=== PATIENT | male | born 1995 | race American Indian/Alaskan Native ===

== ENCOUNTER 2017-06-29 10:28 | Emergency (ER) | payer MEDICAID ==
[2017-06-29] MEDS ORDERED: NACL 0.9% 500 ML 500 ML IV ONE ×2 (11:07→11:41)
--- NOTE | 2017-06-29 11:09 | Emergency Department Report ---
ED CPR HPI - General Chief Complaint: Cardiac Arrest/CPR Stated Complaint: CARDIAC ARREST Time Seen by Provider: 06/29/17 10:59 Source: EMS, old records reviewed Mode of arrival: Ambulatory Limitations: Physical Limitation - History of Present Illness Initial Comments: 22-year-old male with a past medical history muscular dystrophy presents to the hospital via EMS status post respiratory arrest. At the scene was receiving [id number] and chest compressions from his mother. EMS reports the patient does lose his pulse but regained pulse with bag valve mask ventilation and supplemental oxygenation. At his baseline patient uses CPAP at night and during the day as needed. Last week patient was here on the and diagnosed with influenza A. Currently taking Tamiflu. Since diagnosis patient has required more CPAP support during the day and seems to have more phlegm with coughing. No recent fever reported. Mild decrease in appetite causing mother and to increase peg feedings. EMS reports that patient had very poor air movement and received albuterol in route to the hospital. Pt's orthodontic technician is [facility] - Related Data Allergies Allergy/AdvReac Type Severity Reaction Status Date / Time No Known Allergies Allergy Unverified 06/29/17 11:20 ED Review of Systems ROS: Stated complaint: CARDIAC ARREST Other details as noted in HPI Comment: Unobtainable due to pts medical conditions ED Past Medical Hx - Past Medical History Previous Medical History?: Yes Hx Hypertension: Yes Additional medical history: MS - Surgical History Past Surgical History?: Yes Additional Surgical History: PEG - Social History Smoking Status: Never Smoker ED Physical Exam - General Limitations: Physical Limitation - Other Other exam information: General: Limited, cachectic Head exam: Atraumatic Eyes exam: Normal appearance, pupils equal reactive to light ENT: Moist mucous membrane, presents with oral airway and bagging Neck exam: Normal inspection, limited motion Respiratory exam: Bilateral rhonchi, some spontaneous breaths Cardiovascular: Tachycardic regular rhythm Abdomen: Soft, nondistended, positive headache Extremity: Generalized atrophy to all muscle Back: Normal Inspection Neurologic: Lethargic, eyes open spontaneously, does not currently speak or follow command Skin: Warm, dry, intact ED Course Vital Signs 06/29/17 06/29/17 06/29/17 10:30 10:40 10:45 Temperature 98.6 F Pulse Rate 174 H 167 H 177 H Pulse Rate [ Bilateral Upper Lobe] Respiratory 33 H 16 20 Rate Respiratory Rate [Bilateral Upper Lobe] Blood Pressure 127/99 131/100 Blood Pressure 131/100 [Right] O2 Sat by Pulse 96 Oximetry 06/29/17 06/29/17 06/29/17 11:00 11:01 11:16 Temperature Pulse Rate 149 H 142 H 145 H Pulse Rate [ Bilateral Upper Lobe] Respiratory 20 20 20 Rate Respiratory Rate [Bilateral Upper Lobe] Blood Pressure 98/71 98/71 Blood Pressure 98/71 [Right] O2 Sat by Pulse 97 Oximetry 06/29/17 06/29/17 06/29/17 11:30 11:45 12:00 Temperature 96.1 F L Pulse Rate 114 H 119 H 148 H Pulse Rate [ Bilateral Upper Lobe] Respiratory 20 18 10 L Rate Respiratory Rate [Bilateral Upper Lobe] Blood Pressure 81/59 79/46 112/95 Blood Pressure 81/59 [Right] O2 Sat by Pulse Oximetry 06/29/17 06/29/17 06/29/17 12:15 12:17 12:23 Temperature Pulse Rate 121 H 93 H Pulse Rate [ 125 H Bilateral Upper Lobe] Respiratory 9 L Rate Respiratory 20 Rate [Bilateral Upper Lobe] Blood Pressure 74/51 75/51 Blood Pressure [Right] O2 Sat by Pulse Oximetry 06/29/17 06/29/17 06/29/17 12:24 12:30 12:46 Temperature Pulse Rate 41 L Pulse Rate [ 130 H Bilateral Upper Lobe] Respiratory 11 L Rate Respiratory 20 Rate [Bilateral Upper Lobe] Blood Pressure 69/41 102/79 Blood Pressure [Right] O2 Sat by Pulse 71 L Oximetry - Reevaluation(s) Reevaluation #1: 06/29/17 Upon arrival patient was placed on BiPAP with oxygenation of 98%. Respiratory therapist was unable to obtain ABG. IV fluids initiated for hypotension after BiPAP initiation. After 1500 mL of normal saline patient remained hypotensive. Additional 1 L ordered. Central venous line set up ordered. Cardiology came to bedside to evaluate patient. Agree that underlying rhythm is A. fib RVR. Recommended digoxin 0.25 mg IV secondary to A. fib with hypotension. Cardiology considers to start amiodarone pending repeat EKG. EKG was being performed patient's heart rate began to bradycardia down to the 40s. After atropine 0.5 mg they're was very little improvement. Therefore additional atropine 0.5 mg given, epinephrine initiated, and chest compressions initiated. Despite multiple rounds of epinephrine, sodium bicarbonate, and chest compressions patient's rhythm deteriorated from PEA asystole. Mother at the bedside time of 12:53 - Consultations Consultation #1: 06/29/[address] Arciniega/Kaylyn Clayton consulted and came to bedside to eval pt - EJ/Peripheral Line Neck L Time Out Performed: Yes Indications: nurses unable to establis Skin Cleansed in Sterile Fashion: Yes Size: 20 Dressing Placed: Tegaderm Patient Tolerated Procedure: well ED Medical Decision Making - Lab Data Result diagrams: 06/29/17 11:25 06/29/17 11:25 Lab Results 06/29/17 06/29/17 06/29/17 Range/Units 11:25 11:25 11:25 WBC 12.9 H (4.5-11.0) K/mm3 RBC 4.39 (3.65-5.03) M/mm3 Hgb 11.7 L (11.8-15.2) gm/dl Hct 38.3 (35.5-45.6) % MCV 87 (84-94) fl MCH 27 L (28-32) pg MCHC 31 L (32-34) % RDW 13.8 (13.2-15.2) % Plt Count 252 (140-440) K/mm3 Add Manual Diff Complete Total Counted 100 Seg Neuts % (Manual) 59.0 (40.0-70.0) % Band Neutrophils % 2.0 % Lymphocytes % (Manual) 35.0 (13.4-35.0) % Reactive Lymphs % (Man) 0 % Monocytes % (Manual) 4.0 (0.0-7.3) % Eosinophils % (Manual) 0 (0.0-4.3) % Basophils % (Manual) 0 (0.0-1.8) % Metamyelocytes % 0 % Myelocytes % 0 % Promyelocytes % 0 % Blast Cells % 0 % Nucleated RBC % 1.0 H (0.0-0.9) % Seg Neutrophils # Man 7.6 (1.8-7.7) K/mm3 Band Neutrophils # 0.3 K/mm3 Lymphocytes # (Manual) 4.5 (1.2-5.4) K/mm3 Abs React Lymphs (Man) 0.0 K/mm3 Monocytes # (Manual) 0.5 (0.0-0.8) K/mm3 Eosinophils # (Manual) 0.0 (0.0-0.4) K/mm3 Basophils # (Manual) 0.0 (0.0-0.1) K/mm3 Metamyelocytes # 0.0 K/mm3 Myelocytes # 0.0 K/mm3 Promyelocytes # 0.0 K/mm3 Blast Cells # 0.0 K/mm3 WBC Morphology Not Reportable Hypersegmented Neuts Not Reportable Hyposegmented Neuts Not Reportable Hypogranular Neuts Not Reportable Smudge Cells Not Reportable Toxic Granulation Not Reportable Toxic Vacuolation Not Reportable Dohle Bodies Not Reportable Pelger-Huet Anomaly Not Reportable Gabrielle Rods Not Reportable Platelet Estimate Appears normal Clumped Platelets Not Reportable Plt Clumps, EDTA Not Reportable Large Platelets Not Reportable Giant Platelets Not Reportable Platelet Satelliting Not Reportable Plt Morphology Comment Not Reportable RBC Morphology Normal Dimorphic RBCs Not Reportable Polychromasia Not Reportable Hypochromasia Not Reportable Poikilocytosis Not Reportable Anisocytosis Not Reportable Microcytosis Not Reportable Macrocytosis Not Reportable Spherocytes Not Reportable Pappenheimer Bodies Not Reportable Sickle Cells Not Reportable Target Cells Not Reportable Tear Drop Cells Not Reportable Ovalocytes Not Reportable Helmet Cells Not Reportable Denson-[place] Bodies Not Reportable [place] Rings Not Reportable [place] Cells Not Reportable Bite Cells Not Reportable Crenated Cell Not Reportable Elliptocytes Not Reportable Acanthocytes (Spur) Not Reportable Rouleaux Not Reportable Hemoglobin C Crystals Not Reportable Schistocytes Not Reportable Malaria parasites Not Reportable Samuel Bodies Not Reportable Hem Pathologist Commnt No PT (12.2-14.9) Sec. INR (0.87-1.13) APTT (24.2-36.6) Sec. Sodium 147 H (137-145) mmol/L Potassium 3.9 (3.6-5.0) mmol/L Chloride 99.4 (98-107) mmol/L Carbon Dioxide 29 (22-30) mmol/L Anion Gap 23 mmol/L BUN 7 L (9-20) mg/dL Creatinine < 0.2 L (0.8-1.5) mg/dL Estimated GFR > 60 ml/min BUN/Creatinine Ratio 35 % Glucose 127 H (75-100) mg/dL Lactic Acid 6.90 H* (0.7-2.0) mmol/L Calcium 7.5 L (8.4-10.2) mg/dL Magnesium (1.7-2.3) mg/dL Total Creatine Kinase (55-170) units/L CK-MB (CK-2) (0.0-4.0) ng/mL CK-MB (CK-2) Rel Index (0-4) Troponin T (0.00-0.029) ng/mL Triglycerides (2-149) mg/dL Cholesterol (50-199) mg/dL LDL Cholesterol Direct (50-130) mg/dL HDL Cholesterol (40-59) mg/dL Cholesterol/HDL Ratio % 06/29/17 06/29/17 Range/Units 11:25 11:25 WBC (4.5-11.0) K/mm3 RBC (3.65-5.03) M/mm3 Hgb (11.8-15.2) gm/dl Hct (35.5-45.6) % MCV (84-94) fl MCH (28-32) pg MCHC (32-34) % RDW (13.2-15.2) % Plt Count (140-440) K/mm3 Add Manual Diff Total Counted Seg Neuts % (Manual) (40.0-70.0) % Band Neutrophils % % Lymphocytes % (Manual) (13.4-35.0) % Reactive Lymphs % (Man) % Monocytes % (Manual) (0.0-7.3) % Eosinophils % (Manual) (0.0-4.3) % Basophils % (Manual) (0.0-1.8) % Metamyelocytes % % Myelocytes % % Promyelocytes % % Blast Cells % % Nucleated RBC % (0.0-0.9) % Seg Neutrophils # Man (1.8-7.7) K/mm3 Band Neutrophils # K/mm3 Lymphocytes # (Manual) (1.2-5.4) K/mm3 Abs React Lymphs (Man) K/mm3 Monocytes # (Manual) (0.0-0.8) K/mm3 Eosinophils # (Manual) (0.0-0.4) K/mm3 Basophils # (Manual) (0.0-0.1) K/mm3 Metamyelocytes # K/mm3 Myelocytes # K/mm3 Promyelocytes # K/mm3 Blast Cells # K/mm3 WBC Morphology Hypersegmented Neuts Hyposegmented Neuts Hypogranular Neuts Smudge Cells Toxic Granulation Toxic Vacuolation Dohle Bodies Pelger-Huet Anomaly Gabrielle Rods Platelet Estimate Clumped Platelets Plt Clumps, EDTA Large Platelets Giant Platelets Platelet Satelliting Plt Morphology Comment RBC Morphology Dimorphic RBCs Polychromasia Hypochromasia Poikilocytosis Anisocytosis Microcytosis Macrocytosis Spherocytes Pappenheimer Bodies Sickle Cells Target Cells Tear Drop Cells Ovalocytes Helmet Cells Denson-[place] Bodies Yantis Rings [place] Cells Bite Cells Crenated Cell Elliptocytes Acanthocytes (Spur) Rouleaux Hemoglobin C Crystals Schistocytes Malaria parasites Samuel Bodies Hem Pathologist Commnt PT 17.2 H (12.2-14.9) Sec. INR 1.33 H (0.87-1.13) APTT 37.1 H (24.2-36.6) Sec. Sodium (137-145) mmol/L Potassium (3.6-5.0) mmol/L Chloride (98-107) mmol/L Carbon Dioxide (22-30) mmol/L Anion Gap mmol/L BUN (9-20) mg/dL Creatinine (0.8-1.5) mg/dL Estimated GFR ml/min BUN/Creatinine Ratio % Glucose (75-100) mg/dL Lactic Acid (0.7-2.0) mmol/L Calcium (8.4-10.2) mg/dL Magnesium 2.20 (1.7-2.3) mg/dL Total Creatine Kinase 510 H (55-170) units/L CK-MB (CK-2) 15.9 H (0.0-4.0) ng/mL CK-MB (CK-2) Rel Index 3.1 (0-4) Troponin T 0.050 H (0.00-0.029) ng/mL Triglycerides 56 (2-149) mg/dL Cholesterol 62 (50-199) mg/dL LDL Cholesterol Direct 26 L (50-130) mg/dL HDL Cholesterol 25 L (40-59) mg/dL Cholesterol/HDL Ratio 2.48 % - EKG Data -: EKG Interpreted by Me (afib) EKG shows normal: axis (92), QRS complexes (95), ST-T waves (no stemi/t inv, minimal st depression) Rate: tachycardia (124) - EKG Data When compared to previous EKG there are: previous EKG unavailable - Radiology Data Radiology results: report reviewed (chest x-ray: No acute findings read by radiologist) - Medical Decision Making Respiratory Patient was tolerating BiPAP support with saturation of 98% Chest x-ray unremarkable Respiratory unable to obtain abg Tachycardia Initial rhythm appeared to be atrial fibrillation Possible sepsis considered Cardiology consulted and at bedside rec: digoxin 0.25mg IVF intitated with HR improved from 150's-120's Hypotension Sepsis suspected versus A. fib with RVR IV fluids initiated central line set up pending prior to decompensation blood cultures ordered Unfortunately despite ED treatment and resuscitation of this patient's rhythm deteriorated to asystole. Time of 12:53 - Differential Diagnosis pneumonia, bronchitis, sepsis, influenza, respiratory failure Critical Care Time: Yes Critical care time in (mins) excluding proc time.: 65 Critical care attestation.: If time is entered above; I have spent that time in minutes in the direct care of this critically ill patient, excluding procedure time. ED Disposition Clinical Impression: Cardiopulmonary arrest, Influenza A, Muscular dystrophy, Elevated lactic acid level Disposition: DC-20 Is pt being admited?: No Condition: Serious Time of Disposition: 13:30
[2017-06-29] MEDS ORDERED: ATROVENT IH ONE (11:21)
[2017-06-29] MEDS ORDERED: XOPENEX IH ONE (11:21)
--- NOTE | 2017-06-29 11:43 | XRay Report ---
PORTABLE CHEST INDICATION: Shortness of breath. COMPARISON: 08/03/2011 FINDINGS: Portable, frontal chest radiograph limited due to patient rotation to the right with grossly stable cardiomediastinal silhouette, clear lungs and extensive thoracolumbar Lipscomb rods partially imaged. EKG leads. CONCLUSION: Limited, though grossly unremarkable exam with spinal rods again noted, as described. Please correlate. Thank you for the opportunity to participate in this patient's care.
[2017-06-29] MEDS ORDERED: NACL 0.9% 1000 ML 1,000 ML IV ONE (11:51)
[2017-06-29] MEDS ORDERED: ZITHROMAX 500 MG in NACL 0.9% 250ML 250 ML IV ONE (12:00)
[2017-06-29 12:09] LABS: Hematocrit 38.3 % (35.5-45.6); Hemoglobin 11.7 gm/dl (11.8-15.2); Mean Corpuscular HGB Conc 31 % (32-34); Mean Corpuscular Hemoglobin 27 pg (28-32); Mean Corpuscular Volume 87 fl (84-94); Platelet Count 252 K/mm3 (140-440); Red Blood Count 4.39 M/mm3 (3.65-5.03); Red Cell Distribution Width 13.8 % (13.2-15.2)
[2017-06-29] MEDS ORDERED: LANOXIN IV ONE (12:15)
[2017-06-29 12:19] LABS: INR 1.33 (0.87-1.13); Partial Thromboplastin Time 37.1 Sec. (24.2-36.6)
[2017-06-29] MEDS ORDERED: CORDARONE 150 MG in D5W 100 ML IV ONE (12:21)
[2017-06-29 12:24] LABS: BUN/Creatinine Ratio 35; Blood Urea Nitrogen 7 mg/dL (9-20); Calcium 7.5 mg/dL (8.4-10.2); Hemolysis Index 5
[2017-06-29 12:25] LABS: Creatine Kinase MB 15.9 ng/mL (0.0-4.0)
[2017-06-29] MEDS ORDERED: ROCEPHIN/NS 1 GM/50 ML 1 GM/50 ML BAG IV ONE (12:30)
[2017-06-29 12:38] LABS: Chol/HDL Ratio 2.48 %
[2017-06-29] MEDS ORDERED: CORDARONE 900 MG in D5W 482 ML IV SCH (13:00)
[2017-06-29] MEDS ORDERED: ADRENALIN ONE (13:00)
[2017-06-29] MEDS ORDERED: ATROPINE 0.1% (CARDIAC) ONE (13:00)
[2017-06-29] MEDS ORDERED: SODIUM BICARBONATE IV ONE (13:00)
[2017-06-29 13:13] LABS: Band Neutrophils # (Manual) 0.3 K/mm3; Eosinophils % (Manual) 0 % (0.0-4.3); Total Cells Counted 100
[2017-06-29 13:14] LABS: Basophils % (Manual) 0 % (0.0-1.8); RBC Morphology Normal
--- NOTE | 2017-06-29 14:00 | Consultation ---
History of Present Illness Consult date: 06/29/17 Requesting physician: ONOFRE VELAZQUEZ Consult reason: atrial fibrillation, tachycardia History of present illness: 22-year-old male with a past medical history of muscular dystrophy and recent diagnosis of influenza A on 06/21/2017. The patient was reportedly followed by a clean rice grader and reel tender at [facility]. The pt was lethargic and on BiPAP on initial evaluation and thus HPI was obtained per pt's mother at bedside and per ED MD. Pt presented to the ED via EMS status post respiratory arrest at home. Per pt's mother, pt woke up this AM with complaints of shortness of breath. Pt was sitting upright at home and was talking to his mother when he became unresponsive and "stopped breathing" per pt's mother. Pt's mother reportedly initiated CPR and continued CPR for approximately 5 minuted prior to EMS arrival. EMS reported the patient did lose his pulse but regained pulse with bag valve mask ventilation and supplemental oxygenation. Following arrival to ED , pt was noted to be in AFib with RVR (peak HR 160-170s) with hypotension and thus cardiology was consulted. On evaluation, pt was noted to be in AFib with HR 120s - 130s with BPs 70s/50s. IV digoxin x1 dose was ordered and administered. Shortly following digoxin administration, pt converted to a regular rhythm which appeared consistent with accelerated junctional rhythm. Pt maintained this rhythm for a brief period of time before developing bradycardia and eventual cardiopulmonary arrest. Resuscitation efforts were initiated and continued per ACLS protocol. However, resuscitation efforts were unsuccessful and the pt ultimately . Past History Past Medical History: other (muscular dystrophy) Medications and Allergies Allergies Allergy/AdvReac Type Severity Reaction Status Date / Time No Known Allergies Allergy Unverified 06/29/17 11:20 Active Meds: Active Medications Amiodarone HCl 900 mg/ (Dextrose) 500 mls @ 33.33 mls/hr IV DIRECT LUIS FERNANDO; 1 MG /MIN PRN Reason: Protocol Review of Systems ROS unobtainable: due to mental status Physical Examination Vital Signs Pulse Resp 174 H 33 H 06/29/17 10:30 06/29/17 10:30 General appearance: cachectic, other (lethargic, on BiPAP) HEENT: Positive: Normocephaly Cardiac: Positive: irregularly irregular, S1/S2, Tachycardia Lungs: Positive: Decreased Breath Sounds Neuro: Positive: Other (KASIA, lethargic ) Abdomen: Positive: Active Bowel Sounds Skin: Positive: Clear. Negative: Rash Musculoskeletal: No Fluid Collection Extremities: Absent: edema Results 06/29/17 11:25 06/29/17 11:25 Cardiac Enzymes 06/29/17 Range/Units 11:25 CK-MB (CK-2) 15.9 H (0.0-4.0) ng/mL Coagulation 06/29/17 Range/Units 11:25 PT 17.2 H (12.2-14.9) Sec. INR 1.33 H (0.87-1.13) APTT 37.1 H (24.2-36.6) Sec. Lipids 06/29/17 Range/Units 11:25 Triglycerides 56 (2-149) mg/dL Cholesterol 62 (50-199) mg/dL HDL Cholesterol 25 L (40-59) mg/dL Cholesterol/HDL Ratio 2.48 % CBC 06/29/17 Range/Units 11:25 WBC 12.9 H (4.5-11.0) K/mm3 RBC 4.39 (3.65-5.03) M/mm3 Hgb 11.7 L (11.8-15.2) gm/dl Hct 38.3 (35.5-45.6) % Plt Count 252 (140-440) K/mm3 Comprehensive Metabolic Panel 06/29/17 Range/Units 11:25 Sodium 147 H (137-145) mmol/L Potassium 3.9 (3.6-5.0) mmol/L Chloride 99.4 (98-107) mmol/L Carbon Dioxide 29 (22-30) mmol/L BUN 7 L (9-20) mg/dL Creatinine < 0.2 L (0.8-1.5) mg/dL Glucose 127 H (75-100) mg/dL Calcium 7.5 L (8.4-10.2) mg/dL - Imaging and Cardiology Echo: pending EKG: report reviewed, image reviewed EKG interpretations - Telemetry EKG Rhythm: Atrial Fibrillation - EKG Supraventricular dysrhythmia: atrial fibrillation Assessment and Plan Pt . The patient has been seen in conjunction with Dr. Arciniega. - Patient Problems (1) Cardiopulmonary arrest Current Visit: Yes Status: Acute (2) Elevated lactic acid level Current Visit: Yes Status: Acute (3) Influenza A Current Visit: Yes Status: Acute (4) Muscular dystrophy Current Visit: Yes Status: Acute
[2017-06-29 15:16] VITALS: BP 81/59
== END 2017-06-29 15:15 ==
LOC: ED 10:28
DX: I46.9 Cardiac arrest, cause unspecified (principal); J09.X2 Influenza due to identified novel influenza A virus with other respiratory manifestations; G71.0 Muscular dystrophy; R74.0 Nonspecific elevation of levels of transaminase and lactic acid dehydrogenase [LDH]; I10 Essential (primary) hypertension
CPT/HCPCS: 36415; 36569; 71045; 80048; 80061; 82140; 82550; 82553; 83735; 84484; 85007; 85025; 85610; 85730; 87040; 92950; 93005; 93010; 94640; 96374; 96375; 99291; J0171; J0282; J0456; J0461; J0696; J1160; J2930; J7030; J7040; J7050